=== PATIENT | female | born 1970 | race Two or more races ===

== ENCOUNTER 2016-05-18 18:34 | Emergency (ER) | payer OTHER ==
[~2016-05-18] VITALS: Ht 160 cm; Wt 73.5 kg
[2016-05-18 19:00] VITALS: BP 121/56
[2016-05-18] MEDS ORDERED: AMOX500C PO (19:26)
--- NOTE | 2016-05-18 19:26 | PHYS DOC ---
Past Medical History Past Medical History: No Pertinent History Past Surgical History: Alcohol Use: None Drug Use: None Adult General Chief Complaint Chief Complaint: SORE THROAT HPI HPI Patient is a 46 year old female presents emergency room stating that she has a sore throat today. She states she's also been having a fever but ibuprofen has been taking care of both. 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 She denies any nausea or vomiting. Review of Systems Review of Systems Constitutional: Denies fever or chills [] Eyes: Denies change in visual acuity, redness, or eye pain [] HENT: Denies nasal congestion C/o sore throat [] Respiratory: Denies cough or shortness of breath [] Cardiovascular: No additional information not addressed in HPI [] GI: Denies abdominal pain, nausea, vomiting, bloody stools or diarrhea [] : Denies dysuria or hematuria [] Musculoskeletal: Denies back pain or joint pain [] Integument: Denies rash or skin lesions [] Neurologic: Denies headache, focal weakness or sensory changes [] Physical Exam Physical Exam Constitutional: Well developed, well nourished, no acute distress, non-toxic appearance. [] HENT: Normocephalic, atraumatic, bilateral external ears normal, oropharynx moist, no oral exudates, nose normal. Bilateral tympanic membranes appear to be normal. Throat with erythematous no exudate noted no uvula deviation. No adenopathy noted. Eyes: PERRLA, EOMI, conjunctiva normal, no discharge. [] Neck: Normal range of motion, no tenderness, supple, no stridor. [] Cardiovascular:Heart rate regular rhythm, no murmur [] Lungs & Thorax: Bilateral breath sounds clear to auscultation [] Skin: Warm, dry, no erythema, no rash. [] Back: No tenderness Extremities: No tenderness, no cyanosis, no clubbing, ROM intact, no edema. [] Neurologic: Alert and oriented X 3, normal motor function, normal sensory function, no focal deficits noted. [] Psychologic: Affect normal, judgement normal, mood normal. [] Current Patient Data Vital Signs Vital Signs Date Time Temp Pulse Resp B/P Pulse Ox O2 Delivery O2 Flow Rate FiO2 05/18/16 19:00 98.3 81 16 97 Room Air 98.3 EKG EKG [] Radiology/Procedures Radiology/Procedures [] Course & Med Decision Making Course & Med Decision Making Pertinent Labs and Imaging studies reviewed. (See chart for details) Rapid strep was positive. Patient will be discharged home on amoxicillin with recommendations for Tylenol and ibuprofen for fever chills or generalized body aches and discomfort. Signs and symptoms to return back to emergency department as been provided. Patient agrees with discharge instructions treatment regimens and follow-up recommendations [] Dragon Disclaimer Dragon Disclaimer This electronic medical record was generated, in whole or in part, using a voice recognition dictation system. Departure Departure Impression: Primary Impression: Strep throat Disposition: HOME, SELF-CARE Condition: STABLE Referrals: WINIFRED ARROYO M.D. (PCP) Patient Instructions: Strep Throat, [id number] Additional Instructions: Activity as tolerated. Tylenol and ibuprofen for fever chills or generalized body aches and discomfort. Drink plenty of fluids. Warm salt water gargles may help soothe the throat. Coughed drops and throat lozenges may also help. Change her toothbrush within the next 24 hours to a new one. Follow-up to primary care physician as needed. Return back to emergency department sign symptoms become worse Scripts Amoxicillin 500 Mg Capsule1 Cap PO BID #20 CAP Prov:ABUNDIO EVANS NP 05/18/16 ABUNDIO EVANS NP May 18, 2016 19:26
[2016-05-19 08:47] LABS: NEGATIVE OBC STREP NEG; POSITIVE OBC STREP POS
== END 2016-05-18 19:31 | disposition home or self-care (01) ==
LOC: ER 18:34
DX: J02.0 Streptococcal pharyngitis (principal)
CPT/HCPCS: 87880; 99283

== ENCOUNTER 2020-07-16 11:22 | Emergency (ER) | payer OTHER ==
[~2020-07-16] VITALS: Ht 160 cm; Wt 75.0 kg
[~2020-07-16 11:22] MED LIST: AMOX500C PO
--- NOTE | 2020-07-16 12:08 | PHYS DOC ---
Past Medical History Past Medical History: Other Additional Past Medical Histor: GASTRITIS Past Surgical History: Smoking Status: Never Smoker Alcohol Use: None Drug Use: None General Adult EDM: Chief Complaint: CONSTIPATION HPI: HPI: Patient is a 50 year old female patient with history of gastritis presenting today complaining of constipation and abdominal bloating for 5 days. Patient denies any nausea vomiting. Denies any diarrhea. She states she was diagnosed with COVID-19 yesterday Review of Systems: Review of Systems: Constitutional: Denies fever or chills. [] GI: Reports constipation, denies nausea, vomiting, bloody stools or diarrhea. [] : Denies dysuria. [] Musculoskeletal: Denies back pain or joint pain. [] Integument: Denies rash. [] Neurologic: Denies headache, focal weakness or sensory changes. [] Psychiatric: Denies depression or anxiety. [] Heart Score: C/O Chest Pain: N/A Risk Factors: Risk Factors: DM, Current or recent (<one month) smoker, HTN, HLP, family history of CAD, obesity. Risk Scores: Score 0 - 3: 2.5% MACE over next 6 weeks - Discharge Home Score 4 - 6: 20.3% MACE over next 6 weeks - Admit for Clinical Observation Score 7 - 10: 72.7% MACE over next 6 weeks - Early Invasive Strategies Allergies: Allergies: Allergies Coded Allergies Type Severity Reaction Last Updated Verified No Known Drug Allergies 07/16/20 No Physical Exam: PE: Constitutional: Well developed, well nourished, no acute distress, non-toxic appearance. [] Abdomen: Bowel sounds normal, soft, no tenderness, no masses, no pulsatile masses. [] Skin: Warm, dry, no erythema, no rash. [] Back: No tenderness, no CVA tenderness. [] Extremities: No tenderness, no cyanosis, no clubbing, ROM intact, no edema. [] Neurologic: Alert and oriented X 3, normal motor function, normal sensory function, no focal deficits noted. [] Psychologic: Affect normal, judgement normal, mood normal. [] Current Patient Data: Vital Signs: Vital Signs Date Time Temp Pulse Resp B/P (MAP) Pulse Ox O2 Delivery O2 Flow Rate FiO2 07/16/20 11:28 97.9 84 19 123/77 (92) 96 Room Air 97.9 EKG: EKG: [] Radiology/Procedures: Radiology/Procedures: []PROCEDURE: ABDOMEN SUPINE & UPRIGHT INDICATION: Reason: constipation / Spl. Instructions: / History: COMPARISON: None. IMPRESSION: Abdomen: 2 views obtained. Air scattered throughout the large and small bowel in a nonspecific but not grossly obstructive pattern. Moderate stool load at the left side of the colon. Electronically signed by: Feliz Hoyt MD (07/16/2020 12:40 PM) [id number] DICTATED and SIGNED BY: FELIZ HOYT MD DATE: 07/16/20 [id number] 0 Course & Med Decision Making: Course & Med Decision Making Pertinent Labs and Imaging studies reviewed. (See chart for details) This is a 50-year-old female presenting today complaining of constipation for 5 days. Abdomen supine and upright x-rays noted for moderate amount of stool in the left colon. Patient was given mag citrate and Dulcolax. I educated this patient on prevention and OTC management of constipation and f/u with PCP Stephany Disclaimer: Stephany Disclaimer: This electronic medical record was generated, in whole or in part, using a voice recognition dictation system. Departure Departure Impression: Primary Impression: Constipation Qualified Codes: K59.00 - Constipation, unspecified Disposition: 01 DC HOME SELF CARE/HOMELESS Condition: STABLE Referrals: NO PCP (PCP) Follow-up in 1 week with your doctor Patient Instructions: Constipation, Adult, [id number] Additional Instructions: You were seen for constipation. Please increase your dietary fiber intake as well as your water intake to at least 64 ounces a day. Please try to get up and exercise and move more. Consider using MiraLAX every day. Consider using mag citrate anytime you are constipated. You can also take a stool softener anytime you are constipated. Follow-up with your doctor in 1 to 2 weeks as needed Scripts Magnesium Citrate (MAGNESIUM CITRATE) 296 Ml Solution 296 ML PO ONCE, #296 ML Prov: MARY FOX [employer] SAL[employer] REPRESENTATIVE 07/16/20 Polyethylene Glycol 3350 (MIRALAX) 119 Gm Powder 17 GM PO DAILY for constipation, #527 GM 0 Refills dissolve in water Prov: MARY FOX [employer] SAL[employer] REPRESENTATIVE 07/16/20 MARY FOX APRN Jul 16, 2020 12:08
--- NOTE | 2020-07-16 12:42 | RAD ---
INDICATION: Reason: constipation / Spl. Instructions: / History: COMPARISON: None. IMPRESSION: Abdomen: 2 views obtained. Air scattered throughout the large and small bowel in a nonspecific but no t grossly obstructive pattern. Moderate stool load at the left side of the colon. Electronically signed by: Júnior Hoyt MD (07/16/2020 12:40 PM) [id number]
[2020-07-16] MEDS ORDERED: BISACODYL 5 MG TABLET.DR. PO STA (12:57)
[2020-07-16] MEDS ORDERED: MAGNESIUM CITRATE 296 ML SOLUTION. PO ONE (13:00)
[2020-07-16] MEDS ORDERED: MAGN296S68 PO (13:44)
[2020-07-16] MEDS ORDERED: POLY119P4 PO (13:44)
[2020-07-16 14:04] VITALS: BP 122/66
== END 2020-07-16 14:12 | disposition home or self-care (01) ==
LOC: ER 11:22
DX: K59.00 Constipation, unspecified (principal); R14.0 Abdominal distension (gaseous); Z98.890 Other specified postprocedural states
CPT/HCPCS: 74021; 99283